=== PATIENT | female | born 1950 | race Caucasian/White ===

== ENCOUNTER 2017-02-26 22:45 | Emergency (ER) | payer OTHER ==
[2017-02-26 22:50] VITALS: RESP 16; TEMP 97.9
[2017-02-26] MEDS ORDERED: ACETAMINOPHEN 500 MG TAB PO ONE (23:44)
--- NOTE | 2017-02-27 00:29 | EDPHY ---
H & P Stated Complaint: HEADACHE AND NECK PAIN S/P FALL OFF HORSE 11 DAYS AGO Time Seen by Provider: 02/26/17 23:30 HPI/ROS: HPI The patient presents with headache which is diffuse, pressure like, intermittent over the last 11 days, though worse throughout the day today. Eleven days ago she was bucked off of a horse, she was wearing her helmet, however helmet fell off and she hit her head. She did not lose consciousness. She says since then she has had this headache, though today it is worse than usual. She took ibuprofen earlier in the day with some improvement in her symptoms. She does not have any nausea or vomiting, changes to her vision, is unilateral numbness or weakness. She says she feels slightly dizzy and fatigued is since the accident. REVIEW OF SYSTEMS Constitutional: No fever, no chills. Eyes: No discharge. ENT: No sore throat. Cardiovascular: No chest pain, no palpitations. Respiratory: No cough, no shortness of breath. Gastrointestinal: No abdominal pain, no vomiting. Genitourinary: No hematuria. Musculoskeletal: No back pain. Skin: No rashes. Neurological: Positive for headache. PMHx: History of renal colic, hypothyroidism PHYSICAL General Appearance: Alert, no distress Eyes: Pupils equal and round no pallor or injection ENT, Mouth: Mucous membranes moist Respiratory: There are no retractions, lungs are clear to auscultation Cardiovascular: Regular rate and rhythm Gastrointestinal: Abdomen is soft and non-tender, no masses, bowel sounds normal Neurological: A&O x3, cranial nerves 2-12 intact, strength is full throughout Skin: Warm and dry, no rashes Musculoskeletal: Neck is supple non tender Extremities: symmetrical, full range of motion Psychiatric: Patient is oriented X 3, there is no agitation Source: Patient Exam Limitations: No limitations - Personal History Current Tetanus/Diphtheria Vaccine: No Current Tetanus Diphtheria and Acellular Pertussis (TDAP): No - Medical/Surgical History Hx Asthma: No Hx Chronic Respiratory Disease: No Hx Diabetes: No Hx Cardiac Disease: No Hx Renal Disease: No Hx Cirrhosis: No Hx Alcoholism: No Hx HIV/AIDS: No Hx Splenectomy or Spleen Trauma: No Other PMH: kidney stones,hypothyroid - Social History Smoking Status: Never smoked Constitutional: Initial Vital Signs Temperature (C) 36.6 C 02/26/17 22:48 Heart Rate 65 05/26/17 22:48 Respiratory Rate 16 02/26/17 22:48 Blood Pressure 128/75 H 02/26/17 22:48 O2 Sat (%) 97 02/26/17 22:48 O2 Delivery Mode Room Air Allergies/Adverse Reactions: cephalosporins Allergy (Mild, Uncoded 02/26/17 22:50) Rash barbituates Allergy (Uncoded 02/26/17 22:50) Vomiting Home Medications: Medication Instructions Recorded NK [No Known Home Meds] 02/26/17 Medical Decision Making - Diagnostics Imaging Results: Imaging Impressions Head CT 02/26/17 23:44 Impression: Negative noncontrast CT of the head with no intracranial posttraumatic sequela identified. Results called and discussed with Arlen Mackenzie MD on 02/27/2017 at 0:21. Imaging: Discussed imaging studies w/ inbound call center representative Radiologist ED Course/Re-evaluation: CT head was performed and was unremarkable. The patient was given Tylenol with some improvement in her symptoms. We discussed her CT head results. I feel she is likely suffering from a concussion and I have explained this to her. She will be discharged from the emergency room with instructions for continued NSAIDs and primary care follow-up. Differential Diagnosis: This is a 66-year-old female with head injury 11 days ago with continual headache which is diffuse and throbbing with no current associated symptoms. On exam, she has a normal neurologic evaluation. Differential diagnosis includes subdural hematoma, concussion, intracranial hemorrhage. - Data Points Medications Given: Discontinued Medications Acetaminophen (Tylenol) 1,000 mg PO EDNOW ONE Stop: 02/26/17 23:45 Last Admin: 02/26/17 23:50 Dose: 1,000 mg Departure - Departure Disposition: Home, Routine, Self-Care Clinical Impression: Headache Qualifiers: Headache type: unspecified Headache chronicity pattern: acute headache Intractability: not intractable Qualified Code(s): R51 - Headache Concussion Qualifiers: Encounter type: initial encounter Loss of consciousness presence/duration: without LOC Qualified Code(s): S06.0X0A - Concussion without loss of consciousness, initial encounter Condition: Good Instructions: Concussion (ED) Additional Instructions: Please make sure to drink plenty of fluids. You can take ibuprofen or Tylenol as needed for your headache. Please follow-up with your primary care doctor in the next few days. Referrals: Julissa Scherer MD [Primary Care Provider] - As per Instructions
[2017-02-27 00:50] VITALS: BP 124/71; PULSE 57; O2SAT 95
== END 2017-02-27 00:49 | disposition home or self-care (01) ==
DX: S06.0X0A Concussion without loss of consciousness, initial encounter (principal); V80.010A Animal-rider injured by fall from or being thrown from horse in noncollision accident, initial encounter; Y99.8 Other external cause status; Y93.52 Activity, horseback riding

== ENCOUNTER → 2017-11-24 | Outpatient (CLI) | payer OTHER | LOC: FIMAGING 15:00 | PROVIDERS: ATTEND Internal Medicine | DX: Z12.31 Encounter for screening mammogram for malignant neoplasm of breast (principal) ==

== ENCOUNTER 2019-03-14 13:15 | Emergency (ER) | payer OTHER | END 2019-03-14 13:59 | disposition home or self-care (01) ==